=== PATIENT | male | born 1935 | race Caucasian/White ===

== ENCOUNTER → 2018-06-29 22:00 | Outpatient (REF) | payer MEDICARE, SELFPAY ==
[2018-06-29 23:15] LABS: Hematocrit 40.2 % (40-54); Hemoglobin 12.9 g/dl (13.0-16.5); Mean Corp Hgb Conc 32.1 g/gl (32-36); Mean Corpuscular Hgb 29.8 pg (27.0-32.0); Mean Corpuscular Volume 92.8 fL (80-94); Platelet Count 358 K/mm3 (150-450); RBC Distribution Width SD 47.4 fl (35.1-43.9); Red Blood Count 4.33 M/mm3 (4.6-6.2); Scan Indicated on CBC? Y/N NO; White Blood Count 24.7 K/mm3 (4.4-11.0)
[2018-06-29 23:33] LABS: Anion Gap 10 (5-15); BUN 13 mg/dL (7-18); BUN/Creat Ratio 10.2 RATIO (10-20); Calcium,Total 8.9 mg/dL (8.5-10.1); Chloride 104 mmol/L (98-107); Creatinine, Serum 1.27 mg/dL (0.70-1.30); EST Glomerular Filtration Rate 58 mL/min (>60); Est Glom Filt Rate - Afr Amer 70 mL/min (>60); Glucose 161 mg/dL (74-106); Potassium 3.8 mmol/L (3.5-5.1); Sodium Level 138 mmol/L (136-145)
[2018-06-29 23:45] LABS: Color, Urine Yellow (Yellow); Glucose, Dipstick Normal (Normal); Ketone-Dipstick 15 mg/dl (Negative); Leukocyte Esterase-Dipstick 500 /ul (Negative); Nitrite-Dipstick Negative (Negative); Occult Blood-Urine 50 /ul (Negative); Protein-Dipstick 30 mg/dl (Negative); Specific Gravity, Urine 1.015 (1.002-1.030); Urine Bilirubin Dipstick Negative (Negative); Urine Clarity Sl. Cloudy (Clear); Urine Urobilinogen Normal (Normal)
[2018-06-30 00:13] LABS: ALB/GLOB Ratio 0.9 RATIO (0.9-2.4); AST(SGOT) 12 U/L (15-37); Alanine Aminotransfer ALT/SGPT 21 U/L (16-61); Albumin, Serum 3.5 g/dL (3.2-5.0); Alkaline Phosphatase 81 U/L (45-117); Globulin 4.1 g/dL (2.2-4.2); Protein, Total 7.6 g/dL (6.4-8.2)
== END ==
LOC: OLS.ACW200 22:00
PROVIDERS: Visit Provider Family Medicine
DX: L03.115 Cellulitis of right lower limb (principal); M62.81 Muscle weakness (generalized); I10 Essential (primary) hypertension; J44.9 Chronic obstructive pulmonary disease, unspecified; E11.51 Type 2 diabetes mellitus with diabetic peripheral angiopathy without gangrene
CPT/HCPCS: 36415; 80053; 81002; 85027; 87086; 87088; 87186

== ENCOUNTER → 2018-11-01 05:00 | Outpatient (REF) | payer MEDICARE, SELFPAY ==
[2018-11-01 08:28] LABS: Hemoglobin A1c 6.2 % (4.2-6.3)
[2018-11-01 08:34] LABS: AST(SGOT) 9 U/L (15-37); Alanine Aminotransfer ALT/SGPT 12 U/L (16-61); Alkaline Phosphatase 77 U/L (45-117); Anion Gap 8 (5-15); BUN 20 mg/dL (7-18); BUN/Creat Ratio 16.1 RATIO (10-20); Bilirubin, Direct 0.09 mg/dL (0.00-0.30); Calcium,Total 8.5 mg/dL (8.5-10.1); Chloride 106 mmol/L (98-107); Cholesterol 87 mg/dL (200); Creatinine, Serum 1.24 mg/dL (0.70-1.30); EST Glomerular Filtration Rate 59 mL/min (>60); Est Glom Filt Rate - Afr Amer 72 mL/min (>60); Globulin 3.7 g/dL (2.2-4.2); Glucose 135 mg/dL (74-106); High Density Lipoprotein 30 mg/dL; Potassium 4.1 mmol/L (3.5-5.1); Protein, Total 6.7 g/dL (6.4-8.2); Sodium Level 141 mmol/L (136-145); Triglycerides 87 mg/dL; Very Low Density Lipoprotein 17 mg/dL (5-40)
--- OUTSIDE RECORDS SUMMARY | 2019-01-03 06:29 | XMS RPT_ITS ---
:1935 Author Organization OH[facility] Care Team Providers Name Role Phone PROVIDER, UNKNOWN Referring Unavailable Nicolasa Roth Primary Care Unavailable UNKNOWN, PROVIDER Attending Unavailable Reese Marie Attending Unavailable Reese Marie Attending Unavailable Reese Marie Attending Unavailable Reese Marie Attending Unavailable PROBLEMS PROBLEMS DATE TYPE CONDITION / CODE ATTENDING STATUS SOURCE 08/09/2018 Unknown L03.115 - Reees Marie Active [facility] Cellulitis of right Community lower limb / Hospital L03.115(ICD-10) Repository 08/09/2018 Unknown M62.81 - Muscle Reese Marie Active [facility] weakness Community (generalized) / Hospital M62.81(ICD-10) Repository 08/09/2018 Unknown I10 - Essential Reese Marie Active [facility] (primary) [facility] hypertension / Hospital I10(ICD-10) Repository 08/09/2018 Unknown J44.9 - Chronic Reese Marie Active [facility] obstructive [facility] pulmonary disease, Hospital unspecified / Repository J44.9(ICD-10) 08/09/2018 Unknown 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 / E11.51(ICD-10) 05/03/2018 Admitting Sepsis, unspecified Unknown Active [facility] Diagnosis organism / System A41.9(ICD-10) Repository 05/03/2018 Admitting Cellulitis of right Unknown Active [facility] Diagnosis lower limb / System L03.115(ICD-10) Repository 05/03/2018 Admitting Acute kidney Unknown Active [facility] Diagnosis failure, System unspecified / Repository N17.9(ICD-10) 05/03/2018 Admitting Acidosis / Unknown Active [facility] Diagnosis E87.2(ICD-10) System Repository 05/03/2018 Admitting Body mass index Unknown Active [facility] Diagnosis (BMI) 40.0-44.9, System adult / Repository Z68.41(ICD-10) 05/03/2018 Admitting Chronic obstructive Unknown Active [facility] Diagnosis pulmonary disease, System unspecified / Repository J44.9(ICD-10) 05/03/2018 Admitting Pressure ulcer of Unknown Active [facility] Diagnosis left buttock, System unspecified stage / Repository L89.329(ICD-10) 05/03/2018 Admitting Pressure ulcer of Unknown Active [facility] Diagnosis right buttock, System unspecified stage / Repository L89.319(ICD-10) 05/03/2018 Admitting Type 2 diabetes Unknown Active [facility] Diagnosis mellitus w diabetic System chronic kidney Repository disease / E11.22(ICD-10) 05/03/2018 Admitting Type 2 diabetes Unknown Active [facility] Diagnosis mellitus with System hyperglycemia / Repository E11.65(ICD-10) 05/03/2018 Admitting Type 2 diabetes w Unknown Active [facility] Diagnosis diabetic peripheral System angiopath w/o Repository gangrene / E11.51(ICD-10) 05/03/2018 Admitting Pressure ulcer of Unknown Active [facility] Diagnosis unsp part of back, System unspecified stage / Repository L89.109(ICD-10) 05/03/2018 Admitting Do not resuscitate Unknown Active [facility] Diagnosis / Z66(ICD-10) System Repository 05/03/2018 Admitting Pressure ulcer of Unknown Active [facility] Diagnosis right heel, System unstageable / Repository L89.610(ICD-10) 05/03/2018 Admitting Chronic kidney Unknown Active [facility] Diagnosis disease, stage 3 System (moderate) / Repository N18.3(ICD-10) 05/03/2018 Admitting Hypotension, Unknown Active [facility] Diagnosis unspecified / System I95.9(ICD-10) Repository 05/03/2018 Admitting Obstructive sleep Unknown Active [facility] Diagnosis apnea (adult) System (pediatric) / Repository G47.33(ICD-10) 05/03/2018 Admitting Hypertensive Unknown Active [facility] Diagnosis chronic kidney System disease w stg Repository 1-4/unsp chr kdny / I12.9(ICD-10) 05/03/2018 Admitting Benign prostatic Unknown Active [facility] Diagnosis hyperplasia without System lower urinry tract Repository symp / N40.0(ICD-10) 05/03/2018 Admitting Venous Unknown Active [facility] Diagnosis insufficiency System (chronic) Repository (peripheral) / I87.2(ICD-10) 05/03/2018 Admitting Obesity, Unknown Active [facility] Diagnosis unspecified / System E66.9(ICD-10) Repository 05/03/2018 Admitting Irritable bowel Unknown Active [facility] Diagnosis syndrome with System diarrhea / Repository K58.0(ICD-10) 05/03/2018 Admitting Encounter for Unknown Active [facility] Diagnosis palliative care / System Z51.5(ICD-10) Repository 05/03/2018 Admitting Personal history of Unknown Active [facility] Diagnosis colonic polyps / System Z86.010(ICD-10) Repository 05/03/2018 Admitting Bed confinement Unknown Active [facility] Diagnosis status / System Z74.01(ICD-10) Repository 05/03/2018 Admitting History of falling Unknown Active [facility] Diagnosis / Z91.81(ICD-10) System Repository 05/03/2018 Admitting Cataract extraction Unknown Active [facility] Diagnosis status, left eye / System Z98.42(ICD-10) Repository 05/03/2018 Admitting Cataract extraction Unknown Active [facility] Diagnosis status, right eye / System Z98.41(ICD-10) Repository 05/03/2018 Admitting buttermaker continuous churn (current) Unknown Active [facility] Diagnosis use of aspirin / System Z79.82(ICD-10) Repository 05/03/2018 Admitting buttermaker continuous churn (current) Unknown Active [facility] Diagnosis use of oral System hypoglycemic drugs Repository / Z79.84(ICD-10) 05/03/2018 Admitting Personal history of Unknown Active [facility] Diagnosis nicotine dependence System / Z87.891(ICD-10) Repository PROCEDURES PROCEDURES No Procedure Records FoundRESULTS RESULTS HEMOGLOBIN A1C Collected: 11/01/2018 Status: F Source: [place] 6:45 AM [facility] Order Comment: ROOM 307-1 TYPE CODE TESTS RESULT OUT OF RANGE REFERENCE UNITS LAB L501.9985 4.2-6.3 % Normal HGB A1C 6.2 Performed By: #### L501.9985 #### [facility] [address] [place], [id number] BASIC METABOLIC Collected: 11/01/2018 Status: F Source: [place] PROFILE (BMP) 6:45 AM [facility]POS[facility] Order Comment: ROOM 307-1 TYPE CODE TESTS RESULT OUT OF RANGE REFERENCE UNITS LAB L501.0100 74-106 mg/dL High GLU 135 Result Comment: Fasting Glucose result greater than or equal to 126 mg/dL suggests DIABETES MELLITUS per A.D.A. criteria. Please note revised GLUCOSE reference range effective 2017. LAB L501.1000 7-18 mg/dL High BUN 20 LAB L501.1100 0.70-1.30 mg/dL Normal CREAT,SERUM 1.24 Result Comment: The validity of the calculated GFR AND GFRAA in patients over 70 years has not been determined. Clinical correlation is essential. LAB L501.1110 >60 mL/min Low EST GFR 59 Result Comment: Non- GFR Calc LAB L501.1115 >60 mL/min Normal EST GFR - AA 72 Result Comment: GFR Calc LAB L501.1300 10-20 RATIO Normal BUN/CRE 16.1 LAB L501.2200 8.5-10.1 mg/dL CA Normal 8.5 LAB L501.5300 136-145 mmol/L NA Normal 141 LAB L501.5600 3.5-5.1 mmol/L K Normal 4.1 LAB L501.5900 98-107 mmol/L CL Normal 106 LAB L501.6100 21.0-32.0 mmol/L Normal CO2 27.0 LAB L501.6200 5-15 Normal GAP 8 Performed By: #### L500.2500, L500.3400, L500.4100 #### [facility] [address] [place], [address] LIVER PROFILE Collected: 11/01/2018 Status: F Source: [place] 6:45 AM [facility] Order Comment: ROOM 307-1 TYPE CODE TESTS RESULT OUT OF RANGE REFERENCE UNITS LAB L501.1500 6.4-8.2 g/dL Normal T PROT 6.7 LAB L501.1800 3.2-5.0 g/dL Low ALB 3.0 LAB L501.1950 2.2-4.2 g/dL Normal GLOB 3.7 LAB L501.4100 15-37 U/L Low AST 9 LAB L501.4305 45-117 U/L Normal ALK P 77 LAB L501.4405 16-61 U/L Low ALT 12 LAB L501.4600 0.20-1.00 mg/dL Normal T BILI 0.30 LAB L501.4700 0.00-0.30 mg/dL Normal D BILI 0.09 Performed By: #### L500.2500, L500.3400, L500.4100 #### [facility] [address] [facility] [place], [place], [id number] LIPID PROFILE Collected: 11/01/2018 Status: F Source: [place] 6:45 AM [facility] Order Comment: ROOM 307-1 TYPE CODE TESTS RESULT OUT OF RANGE REFERENCE UNITS LAB L501.4900 200 mg/dL Normal CHOL 87 Result Comment: <200 mg/dL Desirable 200-240 mg/dL Borderline >240 mg/dL High Risk LAB L501.5000 mg/dL Normal TRIG 87 Result Comment: The drugs N-Acetylcysteine and Metamizole may falsely depress this assay. Serum Triglycerides Reference Interval Normal <150 mg/dL Borderline high 150 - 199 mg/dL High 200 - 499 mg/dL Very High > or = 500 mg/dL LAB L501.6400 mg/dL Low HDL 30 Result Comment: The drugs N-Acetylcysteine and Metamizole may falsely depress this assay. Reference Range HDL <40 mg/dL Low HDL Cholesterol HDL >or= 60 mg/dL High HDL Cholesterol LAB L501.6500 0-130 mg/dL Normal LDL 40 LAB L501.6600 5-40 mg/dL Normal VLDL 17 Performed By: #### L500.2500, L500.3400, L500.4100 #### [facility] [address] [facility] [place], [place], [id number] CBC-COMPLETE BLOOD CNT Collected: 07/04/2018 Status: F Source: [place] NO DIFF 7:15 AM [facility] TYPE CODE TESTS RESULT OUT OF RANGE REFERENCE UNITS LAB L100.1000 4.4-11.0 K/mm3 Normal WBC 10.1 LAB L100.1200 4.6-6.2 M/mm3 Low RBC 4.02 LAB L100.1300 13.0-16.5 g/dl Low HGB 11.7 LAB L100.1400 40-54 % Low HCT 37.0 LAB L100.1500 80-94 fL Normal MCV 92.0 LAB L100.1600 27.0-32.0 pg Normal MCH 29.1 LAB L100.1700 32-36 g/gl Low MCHC 31.6 LAB L100.1810 11.6-14.6 % Normal RDW CV 13.9 LAB L100.1820 35.1-43.9 fl High RDW SD 46.8 LAB L100.1900 150-450 K/mm3 Normal PLT 403 LAB L100.2000 6.2-12.0 fl Normal MPV 9.2 Performed By: #### L100.0500 #### [facility] [address] [place], [address] BASIC METABOLIC Collected: 07/04/2018 Status: F Source: [place] PROFILE (BMP) 7:15 AM [facility] TYPE CODE TESTS RESULT OUT OF RANGE REFERENCE UNITS LAB L501.0100 74-106 mg/dL High GLU 112 Result Comment: Fasting Glucose result from 100 to 125 mg/dL suggests IMPAIRED HOMEOSTASIS per A.D.A. criteria. Please note revised GLUCOSE reference range effective 2017. LAB L501.1000 7-18 mg/dL Normal BUN 12 LAB L501.1100 0.70-1.30 mg/dL Normal CREAT,SERUM 1.20 Result Comment: The validity of the calculated GFR AND GFRAA in patients over 70 years has not been determined. Clinical correlation is essential. LAB L501.1110 >60 mL/min Normal EST GFR 62 Result Comment: Non- GFR Calc LAB L501.1115 >60 mL/min Normal EST GFR - AA 75 Result Comment: GFR Calc LAB L501.1300 10-20 RATIO Normal BUN/CRE 10.0 LAB L501.2200 8.5-10.1 mg/dL CA Normal 8.7 LAB L501.5300 136-145 mmol/L NA Normal 140 LAB L501.5600 3.5-5.1 mmol/L K Normal 3.5 LAB L501.5900 98-107 mmol/L CL Normal 106 LAB L501.6100 21.0-32.0 mmol/L Normal CO2 27.0 LAB L501.6200 5-15 Normal GAP 7 Performed By: #### L500.2500 #### [facility] [address] [place], [address] BASIC METABOLIC Collected: 06/29/2018 Status: F Source: [place] PROFILE ([facility]) 11:35 PM [facility] Order Comment: RM:100/2 TYPE CODE TESTS RESULT OUT OF RANGE REFERENCE UNITS LAB L501.0100 74-106 mg/dL High GLU 161 Result Comment: Fasting Glucose result greater than or equal to 126 mg/dL suggests DIABETES MELLITUS per A.D.A. criteria. Please note revised GLUCOSE reference range effective 2017. LAB L501.1000 7-18 mg/dL Normal BUN 13 LAB L501.1100 0.70-1.30 mg/dL Normal CREAT,SERUM 1.27 Result Comment: The validity of the calculated GFR AND GFRAA in patients over 70 years has not been determined. Clinical correlation is essential. LAB L501.1110 >60 mL/min Low EST GFR 58 Result Comment: Non- GFR Calc LAB L501.1115 >60 mL/min Normal EST GFR - AA 70 Result Comment: GFR Calc LAB L501.1300 10-20 RATIO Normal BUN/CRE 10.2 LAB L501.2200 8.5-10.1 mg/dL CA Normal 8.9 LAB L501.5300 136-145 mmol/L NA Normal 138 LAB L501.5600 3.5-5.1 mmol/L K Normal 3.8 LAB L501.5900 98-107 mmol/L CL Normal 104 LAB L501.6100 21.0-32.0 mmol/L Normal CO2 24.0 LAB L501.6200 5-15 Normal GAP 10 Performed By: #### L500.2500, L500.4050 #### [facility] [address] [place], [address] COMPREHENSIVE METABOLIC Collected: 06/29/2018 Status: F Source: [place] PROFIL 11:35 PM [facility] Order Comment: RM:100/2 TYPE CODE TESTS RESULT OUT OF RANGE REFERENCE UNITS LAB L501.0100 74-106 mg/dL High GLU 161 Result Comment: Fasting Glucose result greater than or equal to 126 mg/dL suggests DIABETES MELLITUS per A.D.A. criteria. Please note revised GLUCOSE reference range effective 2017. LAB L501.1000 7-18 mg/dL Normal BUN 13 LAB L501.1100 0.70-1.30 mg/dL Normal CREAT,SERUM 1.27 Result Comment: The validity of the calculated GFR AND GFRAA in patients over 70 years has not been determined. Clinical correlation is essential. LAB L501.1110 >60 mL/min Low EST GFR 58 Result Comment: Non- GFR Calc LAB L501.1115 >60 mL/min Normal EST GFR - AA 70 Result Comment: GFR Calc LAB L501.1300 10-20 RATIO Normal BUN/CRE 10.2 LAB L501.2200 8.5-10.1 mg/dL CA Normal 8.9 LAB L501.5300 136-145 mmol/L NA Normal 138 LAB L501.5600 3.5-5.1 mmol/L K Normal 3.8 LAB L501.5900 98-107 mmol/L CL Normal 104 LAB L501.6100 21.0-32.0 mmol/L Normal CO2 24.0 LAB L501.6200 5-15 Normal GAP 10 LAB L501.1500 6.4-8.2 g/dL T Normal PROT 7.6 LAB L501.1800 3.2-5.0 g/dL Normal ALB 3.5 LAB L501.1950 2.2-4.2 g/dL Normal GLOB 4.1 LAB L501.2000 0.9-2.4 RATIO Normal A/G 0.9 LAB L501.4100 15-37 U/L Low AST 12 LAB L501.4305 45-117 U/L Normal ALK P 81 LAB L501.4405 16-61 U/L Normal ALT 21 LAB L501.4600 0.20-1.00 mg/dL T Normal BILI 0.50 Performed By: #### L500.2500, L500.4050 #### [facility] [address] [place], [place], [id number] CBC-COMPLETE BLOOD CNT Collected: 06/29/2018 Status: F Source: [place] NO DIFF 10:35 PM [facility] Order Comment: RM:100/2 TYPE CODE TESTS RESULT OUT OF RANGE REFERENCE UNITS LAB L100.1000 4.4-11.0 K/mm3 High WBC 24.7 LAB L100.1200 4.6-6.2 M/mm3 Low RBC 4.33 LAB L100.1300 13.0-16.5 g/dl Low HGB 12.9 LAB L100.1400 40-54 % Normal HCT 40.2 LAB L100.1500 80-94 fL Normal MCV 92.8 LAB L100.1600 27.0-32.0 pg Normal MCH 29.8 LAB L100.1700 32-36 g/gl Normal MCHC 32.1 LAB L100.1810 11.6-14.6 % Normal RDW CV 14.0 LAB L100.1820 35.1-43.9 fl High RDW SD 47.4 LAB L100.1900 150-450 K/mm3 Normal PLT 358 LAB L100.2000 6.2-12.0 fl Normal MPV 9.0 Performed By: #### L100.0500 #### [facility] [address] [place], [address] URINALYSIS, ROUTINE Collected: 06/29/2018 Status: F Source: [place] (DIPSTICK) 10:00 PM [facility] Order Comment: How was Urine Obtained? CLEAN CATCH TYPE CODE TESTS RESULT OUT OF RANGE REFERENCE UNITS LAB L400.3000 Yellow COLOR Normal Yellow LAB L400.3050 Clear Normal CLARITY Sl. Cloudy LAB L400.3200 Normal mg/dl Normal GLUCOSE, UR Normal LAB L400.3300 Negative mg/dL Normal BILIRUBIN URINE Negative LAB L400.3400 Negative mg/dl High 15 KETONE UR LAB L400.3465 1.002-1.030 Normal SP.GR. DIPSTX 1.015 LAB L400.3550 5.0 - 8.0 pH UR Normal 5.0 LAB L400.3600 Negative mg/dl High PROT 30 DIPSTX LAB L400.3700 Normal mg/dl Normal UROBILI Normal LAB L400.3750 Negative Normal NITRITE UR Negative LAB L400.3780 Negative /ul High 50 OCCULT BLOOD-UR LAB L400.3800 Negative /ul High LEUK ESTERASE 500 Performed By: #### L400.2011 #### [facility] [address] [facility] [place], [place], [address] Observed: 06/29/2018 Status: F Source: [place] CULTURE, URINE 10:00 PM [facility] REPOS[facility]ORY Urine Culture ORGANISM 1: Presumptive E. coli [place] Count 80,000-100,000 Presumptive E. coli: REACTION Amoxacillin/Clavulanic Acid $ 4 S Ampicillin $ 4 S Ampicillin/Sulbactam $ 4 S Cefazolin $ <=4 S Cefepime $ <=1 S Ceftriaxone $ <=1 S Ciprofloxacin $ <=0.25 S ESBL - Ertapenim $$$ <=0.5 S Gentamicin $ <=1 S Imipenem *NF <=0.25 S Levofloxacin $ 1 S Nitrofurantoin $ <=16 S Piperacillin/Tazobactam $$ <=4 S Tobramycin $ <=1 S Trimethoprim/Sulfametho $ <=20 S (NF) indicates non-formulary drug at [facility]. Approval by Infectious Disease Specialist required before non-formulary drugs may be ordered and/or dispensed. Performed By: #### M100.0650 #### [facility] [address] [facility] [place], [address] CBC-COMPLETE BLOOD CNT Collected: 05/23/2018 Status: F Source: [place] NO DIFF 5:55 AM [facility] Order Comment: 100-2 TYPE CODE TESTS RESULT OUT OF RANGE REFERENCE UNITS LAB L100.1000 4.4-11.0 K/mm3 Normal WBC 8.3 LAB L100.1200 4.6-6.2 M/mm3 Low RBC 4.02 LAB L100.1300 13.0-16.5 g/dl Low HGB 11.9 LAB L100.1400 40-54 % Low HCT 38.8 LAB L100.1500 80-94 fL High MCV 96.5 LAB L100.1600 27.0-32.0 pg Normal MCH 29.6 LAB L100.1700 32-36 g/gl Low MCHC 30.7 LAB L100.1810 11.6-14.6 % High RDW CV 15.1 LAB L100.1820 35.1-43.9 fl High RDW SD 52.9 LAB L100.1900 150-450 K/mm3 Normal PLT 421 LAB L100.2000 6.2-12.0 fl Normal MPV 9.4 Performed By: #### L100.0500 #### [facility] [address] [place], [address] COMPREHENSIVE METABOLIC Collected: 05/23/2018 Status: F Source: [place] [facility] 5:55 AM [facility] Order Comment: 100-2 TYPE CODE TESTS RESULT OUT OF RANGE REFERENCE UNITS LAB L501.0100 74-106 mg/dL High GLU 107 Result Comment: Fasting Glucose result from 100 to 125 mg/dL suggests IMPAIRED HOMEOSTASIS per A.D.A. criteria. Please note revised GLUCOSE reference range effective 2017. LAB L501.1000 7-18 mg/dL Normal BUN 11 LAB L501.1100 0.70-1.30 mg/dL Normal CREAT,SERUM 1.25 Result Comment: The validity of the calculated GFR AND GFRAA in patients over 70 years has not been determined. Clinical correlation is essential. LAB L501.1110 >60 mL/min Low EST GFR 59 Result Comment: Non- GFR Calc LAB L501.1115 >60 mL/min Normal EST GFR - AA 71 Result Comment: GFR Calc LAB L501.1300 10-20 RATIO Low BUN/CRE 8.8 LAB L501.1500 6.4-8.2 g/dL Normal T PROT 6.4 LAB L501.1800 3.2-5.0 g/dL Low ALB 2.8 LAB L501.1950 2.2-4.2 g/dL Normal GLOB 3.6 LAB L501.2000 0.9-2.4 RATIO Low A/G 0.8 LAB L501.2200 8.5-10.1 mg/dL Normal CA 8.5 LAB L501.4100 15-37 U/L Normal AST 18 LAB L501.4305 45-117 U/L Normal ALK P 75 LAB L501.4405 16-61 U/L Normal ALT 21 LAB L501.4600 0.20-1.00 mg/dL Normal T BILI 0.30 LAB L501.5300 136-145 mmol/L Normal NA 143 LAB L501.5600 3.5-5.1 mmol/L Normal K 3.7 LAB L501.5900 98-107 mmol/L Normal CL 106 LAB L501.6100 21.0-32.0 mmol/L Normal CO2 32.0 LAB L501.6200 5-15 Normal GAP 5 Performed By: #### L500.4050, L500.4100, L501.5200, L501.9520 #### [facility] [address] [place], [place], [address] LIPID PROFILE Collected: 05/23/2018 Status: F Source: [place] 5:55 AM [facility] Order Comment: 100-2 TYPE CODE TESTS RESULT OUT OF RANGE REFERENCE UNITS LAB L501.4900 200 mg/dL Normal CHOL 105 Result Comment: <200 mg/dL Desirable 200-240 mg/dL Borderline >240 mg/dL High Risk LAB L501.5000 mg/dL Normal TRIG 150 Result Comment: The drugs N-Acetylcysteine and Metamizole may falsely depress this assay. Serum Triglycerides Reference Interval Normal <150 mg/dL Borderline high 150 - 199 mg/dL High 200 - 499 mg/dL Very High > or = 500 mg/dL LAB L501.6400 mg/dL Low HDL 33 Result Comment: The drugs N-Acetylcysteine and Metamizole may falsely depress this assay. Reference Range HDL <40 mg/dL Low HDL Cholesterol HDL >or= 60 mg/dL High HDL Cholesterol LAB L501.6500 0-130 mg/dL Normal LDL 42 LAB L501.6600 5-40 mg/dL Normal VLDL 30 Performed By: #### L500.4050, L500.4100, L501.5200, L501.9520 #### [facility] [address] [place], [place], [address] MAGNESIUM Collected: 05/23/2018 Status: F Source: [place] 5:55 AM [facility] Order Comment: 100-2 TYPE CODE TESTS RESULT OUT OF RANGE REFERENCE UNITS LAB L501.5200 1.6-2.6 mg/dL Normal MG 1.7 Performed By: #### L500.4050, L500.4100, L501.5200, L501.9520 #### [facility] [address] [place], [address] THYROID STIM HORMONE Collected: 05/23/2018 Status: F Source: [place]NMAR[place] (TSH) 5:55 AM [facility] Order Comment: 100-2 TYPE CODE TESTS RESULT OUT OF RANGE REFERENCE UNITS LAB L501.9520 0.358-3.74 uIU/mL Normal TSH 1.47 Performed By: #### L500.4050, L500.4100, L501.5200, L501.9520 #### [facility] [address] [place], [address] VITAMIN D,25 HYDROXY Collected: 05/23/2018 Status: F Source: [place] 5:55 AM [facility] Order Comment: 100-2 TYPE CODE TESTS RESULT OUT OF RANGE REFERENCE UNITS LAB L506.1000 29.95-100.01 ng/mL Normal Vitamin D 53.6 25-OH Result Comment: Vitamin D 25(OH) Status Range Deficiency <20 ng/mL (50nmol/L) Insuffciency 20 - 30 ng/mL (50 - 75 nmol/L) Sufficiency 30 - 100 ng/mL (75 - 250 nmol/L) Toxicity >100 ng/mL (>250 nmol/L) Performed By: #### L506.1000 #### [facility] [address] [place], [address] HEMOGLOBIN A1C Collected: 05/23/2018 Status: F Source: [place] 5:55 AM [facility] Order Comment: 100-2 TYPE CODE TESTS RESULT OUT OF RANGE REFERENCE UNITS LAB L501.9985 4.2-6.3 % High HGB A1C 6.5 Performed By: #### L501.9985 #### [facility] [address] [place], [address] HEMOGRAM Collected: 05/08/2018 Status: F Source: [facility] [employer] 6:22 AM SYSTEM REPOSITORY TYPE CODE TESTS RESULT OUT OF RANGE REFERENCE UNITS LAB IWBC 3.6-10.7 10*3/uL WBC Normal 9.3 LAB RBC 4.40-5.90 10*6/uL Low RBC 4.04 LAB HGB 13.0-18.0 g/dL Low Hemoglobin 12.4 LAB HCT 40.0-52.0 % Low Hematocrit 37.2 LAB MCV 80.0-98.0 fL MCV Normal 91.9 LAB MCH 26.0-34.0 pg MCH Normal 30.6 LAB MCHC 32.0-36.0 % MCHC Normal 33.3 LAB RDW 11.5-14.5 % RDW Normal 14.0 LAB PLT 140-440 10*3/uL Platelet Normal 329 LAB MPV 7.4-10.4 fL Low MPV 7.2 Performed By: #### HEMOG CMP3 #### [facility] [address] [place] [address] COMP METABOLIC PANEL Collected: 05/08/2018 Status: F Source: [employer] 6:22 AM SYSTEM REPOSITORY TYPE CODE TESTS RESULT OUT OF RANGE REFERENCE UNITS LAB NA3 137-145 mmol/L Sodium Normal 140 LAB K3 3.5-5.1 mmol/L Normal Potassium 3.9 LAB CL3 98-107 mmol/L High Chloride 111 LAB CO23 22-30 mmol/L Carbon Normal Dioxide 25 LAB ANIN3 NA Anion Gap 4 LAB GLUC3 70-100 mg/dL High Glucose 118 LAB BUN3 7-20 mg/dL Urea Normal Nitrogen 15 LAB CRET3 0.52-1.25 mg/dL High Creatinine 1.33 LAB GF3BR >60 mL/min eGFR > 60.0 LAB GF3WR >60 mL/min eGFR OTHER 51.5 Result Comment: Source- MDRD equation with creatinine calibration to IDMS(NKDEP) eGFR not recommended for drug dose adjustment LAB CA3 8.4-10.4 mg/dL Calcium Normal 8.8 LAB ALB3 3.5-5.0 g/dL Low Albumin, Serum 3.0 LAB TP3 6.3-8.2 g/dL Low Total Protein 5.9 LAB BILT3 0.2-1.3 mg/dL Normal Bilirubin,Total 0.5 LAB ALKP3 38-126 U/L Alkaline Normal Phosphatase 70 LAB ALT3 13-69 U/L ALT (SGPT) Normal 27 LAB AST3 15-46 U/L Low AST (SGOT) 10 Performed By: #### HEMOG, CMP3 #### [facility] [address] [place] [address] PROCALCITONIN Collected: 05/08/2018 Status: F Source: [employer] 6:22 AM SYSTEM REPOSITORY TYPE CODE TESTS RESULT OUT OF REFERENCE UNITS RANGE LAB PRO <0.10 ng/mL Procalcitonin Normal < 0.10 LAB INT3 NA Interpretation See Below Result Comment: PCT <0.50 = Low risk of severe sepsis and/or septic shock. PCT >2.00 = High risk of severe sepsis and/or septic shock. Performed By: #### PCAL #### [facility] [address] [place] [address] GLUCOSE,BEDSIDE Collected: 05/07/2018 Status: F Source: [employer] 10:12 PM SYSTEM REPOSITORY TYPE CODE TESTS RESULT OUT OF RANGE REFERENCE UNITS LAB BGLU 70-100 mg/dL High 146 Glucose,Beds justin Result Comment: Test performed by glucose meter. Results may be 10%-15% lower than serum/plasma values. (CLIA ID [id number]) Performed By: #### BGLU #### [facility] [address] [place] [address] GLUCOSE,BEDSIDE Collected: 05/07/2018 Status: F Source: UXCam 5:07 PM SYSTEM REPOSITORY TYPE CODE TESTS RESULT OUT OF RANGE REFERENCE UNITS LAB BGLU 70-100 mg/dL High 139 Glucose,Beds justin Result Comment: Test performed by glucose meter. Results may be 10%-15% lower than serum/plasma values. (CLIA ID [id number]) Performed By: #### BGLU #### [facility] [address] [place] [address] GLUCOSE,BEDSIDE Collected: 05/07/2018 Status: F Source: UXCam 12:50 PM SYSTEM REPOSITORY TYPE CODE TESTS RESULT OUT OF RANGE REFERENCE UNITS LAB BGLU 70-100 mg/dL High 102 Glucose,Beds justin Result Comment: Test performed by glucose meter. Results may be 10%-15% lower than serum/plasma values. (CLIA ID [id number]) Performed By: #### BGLU #### [facility] [address] [place] [address] HEMOGRAM Collected: 05/07/2018 Status: F Source: UXCam 3:26 AM SYSTEM REPOSITORY TYPE CODE TESTS RESULT OUT OF RANGE REFERENCE UNITS LAB IWBC 3.6-10.7 10*3/uL High WBC 14.0 LAB RBC 4.40-5.90 10*6/uL Low RBC 4.15 LAB HGB 13.0-18.0 g/dL Low Hemoglobin 12.4 LAB HCT 40.0-52.0 % Low Hematocrit 38.2 LAB MCV 80.0-98.0 fL MCV Normal 92.1 LAB MCH 26.0-34.0 pg MCH Normal 30.0 LAB MCHC 32.0-36.0 % MCHC Normal 32.5 LAB RDW 11.5-14.5 % RDW Normal 14.4 LAB PLT 140-440 10*3/uL Platelet Normal 334 LAB MPV 7.4-10.4 fL Low MPV 7.0 Performed By: #### DEVIN ORDONEZ3 #### [facility] [address] [place] [address] BASIC METABOLIC PANEL Collected: 05/07/2018 Status: F Source: UXCam 3:26 AM SYSTEM REPOSITORY TYPE CODE TESTS RESULT OUT OF RANGE REFERENCE UNITS LAB NA3 137-145 mmol/L Sodium Normal 142 LAB K3 3.5-5.1 mmol/L Normal Potassium 4.4 LAB CL3 98-107 mmol/L High Chloride 111 LAB CO23 22-30 mmol/L Carbon Normal Dioxide 25 LAB ANIN3 NA Anion Gap 5 LAB GLUC3 70-100 mg/dL High Glucose 129 LAB BUN3 7-20 mg/dL High Urea Nitrogen 24 LAB CRET3 0.52-1.25 mg/dL High Creatinine 1.67 LAB GF3BR >60 mL/min eGFR 48.0 LAB GF3WR >60 mL/min eGFR OTHER 39.6 Result Comment: Source- MDRD equation with creatinine calibration to IDMS(NKDEP) eGFR not recommended for drug dose adjustment LAB CA3 8.4-10.4 mg/dL Normal Calcium 8.7 Performed By: #### HEMHIEN BMP3 #### [facility] [address] [place] [address] GLUCOSE,BEDSIDE Collected: 05/06/2018 Status: F Source: UXCam 10:01 PM SYSTEM REPOSITORY TYPE CODE TESTS RESULT OUT OF RANGE REFERENCE UNITS LAB BGLU 70-100 mg/dL High 128 Glucose,Beds justin Result Comment: Test performed by glucose meter. Results may be 10%-15% lower than serum/plasma values. (CLIA ID [id number]) Performed By: #### BGLU #### [facility] [address] [place] [address] GLUCOSE,BEDSIDE Collected: 05/06/2018 Status: F Source: UXCam 5:00 PM SYSTEM REPOSITORY TYPE CODE TESTS RESULT OUT OF RANGE REFERENCE UNITS LAB BGLU 70-100 mg/dL High 125 Glucose,Beds justin Result Comment: Test performed by glucose meter. Results may be 10%-15% lower than serum/plasma values. (CLIA ID [id number]) Performed By: #### BGLU #### [facility] [address] [place] [address] GLUCOSE,BEDSIDE Collected: 05/06/2018 Status: F Source: UXCam 12:02 PM SYSTEM REPOSITORY TYPE CODE TESTS RESULT OUT OF RANGE REFERENCE UNITS LAB BGLU 70-100 mg/dL High 121 Glucose,Beds justin Result Comment: Test performed by glucose meter. Results may be 10%-15% lower than serum/plasma values. (CLIA ID [id number]) Performed By: #### BGLU #### [facility] [address] [place] [address] HEMOGRAM W/ AUTODIFF Collected: 05/06/2018 Status: F Source: UXCam 4:39 AM SYSTEM REPOSITORY TYPE CODE TESTS RESULT OUT OF REFERENCE UNITS RANGE LAB IWBC 3.6-10.7 10*3/uL WBC Normal 8.4 LAB RBC 4.40-5.90 10*6/uL Low RBC 3.72 LAB HGB 13.0-18.0 g/dL Low Hemoglobin 11.4 LAB HCT 40.0-52.0 % Low Hematocrit 34.1 LAB MCV 80.0-98.0 fL MCV Normal 91.6 LAB MCH 26.0-34.0 pg MCH Normal 30.7 LAB MCHC 32.0-36.0 % MCHC Normal 33.5 LAB RDW 11.5-14.5 % RDW Normal 14.0 LAB PLT 140-440 10*3/uL Platelet Normal 310 LAB MPV 7.4-10.4 fL Low MPV 7.1 LAB GRAN% 40.0-80.0 % Granulocytes Normal 65.0 LAB LYMP% 20.0-40.0 % Low Lymphocytes 18.0 LAB MONO% 2.0-10.0 % Monocytes Normal 7.8 LAB EOS% 1.0-6.0 % Eosinophils High 8.4 LAB BAS% 0.0-2.0 % Basophils Normal 0.8 LAB ANC 1.8-7.0 10*3/uL Abs Normal Neutrophile Cnt 5.4 LAB ALC 1.0-4.3 10*3/uL Abs Lymph Cnt Normal 1.5 LAB AMC 0.0-0.8 10*3/uL Abs Monocyte Normal Cnt 0.6 LAB AEC 0.0-0.5 10*3/uL Abs Eosin Cnt High 0.7 LAB ABC 0.0-0.2 10*3/uL Abs Baso Cnt Normal 0.1 Performed By: #### HEMDF, CMP3M #### [facility] [address] [place] [address] COMP PANEL WITH MG Collected: 05/06/2018 Status: F Source: UXCam REFLEX 4:39 AM SYSTEM REPOSITORY TYPE CODE TESTS RESULT OUT OF RANGE REFERENCE UNITS LAB NA3 137-145 mmol/L Sodium Normal 139 LAB K3 3.5-5.1 mmol/L Normal Potassium 4.1 LAB CL3 98-107 mmol/L Chloride Normal 106 LAB CO23 22-30 mmol/L Carbon Normal Dioxide 27 LAB ANIN3 NA Anion Gap 5 LAB GLUC3 70-100 mg/dL High Glucose 115 LAB BUN3 7-20 mg/dL High Urea Nitrogen 35 LAB CRET3 0.52-1.25 mg/dL High Creatinine 2.20 LAB GF3BR >60 mL/min eGFR 34.9 LAB GF3WR >60 mL/min eGFR OTHER 28.8 Result Comment: Source- MDRD equation with creatinine calibration to IDNM(NKDEP) eGFR not recommended for drug dose adjustment LAB CA3 8.4-10.4 mg/dL Calcium Normal 8.5 LAB ALB3 3.5-5.0 g/dL Low Albumin, Serum 2.9 LAB TP3 6.3-8.2 g/dL Low Total Protein 5.7 LAB BILT3 0.2-1.3 mg/dL Normal Bilirubin,Total 0.5 LAB ALKP3 38-126 U/L Alkaline Normal Phosphatase 61 LAB ALT3 13-69 U/L ALT (SGPT) Normal 24 LAB AST3 15-46 U/L AST (SGOT) Normal 16 Performed By: #### HEMDF, CMP3M #### [facility] [address] [place] [address] PROCALCITONIN Collected: 05/06/2018 Status: F Source: UXCam 4:39 AM SYSTEM REPOSITORY TYPE CODE TESTS RESULT OUT OF REFERENCE UNITS RANGE LAB PRO <0.10 ng/mL Procalcitonin Normal < 0.10 LAB INT3 NA Interpretation See Below Result Comment: PCT <0.50 = Low risk of severe sepsis and/or septic shock. PCT >2.00 = High risk of severe sepsis and/or septic shock. Performed By: #### PCAL #### [facility] [address] [place] [address] VANCOMYCIN TROUGH Collected: 05/05/2018 Status: F Source: UXCam 9:11 PM SYSTEM REPOSITORY TYPE CODE TESTS RESULT OUT OF REFERENCE UNITS RANGE LAB VNCT 15.0-20.0 ug/mL Low Vancomycin 13.0 Trough Result Comment: . Performed By: #### VANCT #### [facility] [address] [place] [address] GLUCOSE,BEDSIDE Collected: 05/05/2018 Status: F Source: UXCam 7:57 PM SYSTEM REPOSITORY TYPE CODE TESTS RESULT OUT OF RANGE REFERENCE UNITS LAB BGLU 70-100 mg/dL High 161 Glucose,Beds justin Result Comment: Test performed by glucose meter. Results may be 10%-15% lower than serum/plasma values. (CLIA ID [id number]) Performed By: #### BGLU #### [facility] [address] [place] [address] GLUCOSE,BEDSIDE Collected: 05/05/2018 Status: F Source: UXCam 5:17 PM SYSTEM REPOSITORY TYPE CODE TESTS RESULT OUT OF RANGE REFERENCE UNITS LAB BGLU 70-100 mg/dL High 117 Glucose,Beds justin Result Comment: Test performed by glucose meter. Results may be 10%-15% lower than serum/plasma values. (CLIA ID [id number]) Performed By: #### BGLU #### [facility] [address] [place] [address] GLUCOSE,BEDSIDE Collected: 05/05/2018 Status: F Source: UXCam 12:02 PM SYSTEM REPOSITORY TYPE CODE TESTS RESULT OUT OF RANGE REFERENCE UNITS LAB BGLU 70-100 mg/dL High 115 Glucose,Beds justin Result Comment: Test performed by glucose meter. Results may be 10%-15% lower than serum/plasma values. (CLIA ID [id number]) Performed By: #### BGLU #### [facility] [address] [place] [address] GLUCOSE,BEDSIDE Collected: 05/05/2018 Status: F Source: UXCam 8:23 AM SYSTEM REPOSITORY TYPE CODE TESTS RESULT OUT OF RANGE REFERENCE UNITS LAB BGLU 70-100 mg/dL High 105 Glucose,Beds justin Result Comment: Test performed by glucose meter. Results may be 10%-15% lower than serum/plasma values. (CLIA ID [id number]) Performed By: #### BGLU #### [facility] [address] [place] [address] CALCIUM,IONIZED Collected: 05/05/2018 Status: F Source: UXCam 3:52 AM SYSTEM REPOSITORY TYPE CODE TESTS RESULT OUT OF RANGE REFERENCE UNITS LAB ICAL 4.30-5.20 mg/dL Normal Ionized 4.30 Ca,Measured LAB PHICA 7.31-7.46 NA Normal pH, Ionized 7.42 Calcium Performed By: #### ICA, HEMDF, MG3, CMP3M #### [facility] [address] [place] [address] HEMOGRAM W/ AUTODIFF Collected: 05/05/2018 Status: F Source: UXCam 3:52 AM SYSTEM REPOSITORY TYPE CODE TESTS RESULT OUT OF REFERENCE UNITS RANGE LAB IWBC 3.6-10.7 10*3/uL WBC Normal 8.7 LAB RBC 4.40-5.90 10*6/uL Low RBC 3.74 LAB HGB 13.0-18.0 g/dL Low Hemoglobin 11.6 LAB HCT 40.0-52.0 % Low Hematocrit 34.3 LAB MCV 80.0-98.0 fL MCV Normal 91.7 LAB MCH 26.0-34.0 pg MCH Normal 31.0 LAB MCHC 32.0-36.0 % MCHC Normal 33.8 LAB RDW 11.5-14.5 % RDW Normal 14.1 LAB PLT 140-440 10*3/uL Platelet Normal 288 LAB MPV 7.4-10.4 fL MPV Normal 7.5 LAB GRAN% 40.0-80.0 % Granulocytes Normal 65.4 LAB LYMP% 20.0-40.0 % Low Lymphocytes 18.2 LAB MONO% 2.0-10.0 % Monocytes Normal 8.1 LAB EOS% 1.0-6.0 % Eosinophils High 7.2 LAB BAS% 0.0-2.0 % Basophils Normal 1.1 LAB ANC 1.8-7.0 10*3/uL Abs Normal Neutrophile Cnt 5.7 LAB ALC 1.0-4.3 10*3/uL Abs Lymph Cnt Normal 1.6 LAB AMC 0.0-0.8 10*3/uL Abs Monocyte Normal Cnt 0.7 LAB AEC 0.0-0.5 10*3/uL Abs Eosin Cnt High 0.6 LAB ABC 0.0-0.2 10*3/uL Abs Baso Cnt Normal 0.1 Performed By: #### ICA, HEMDF, MG3, CMP3M #### [facility] [address] [place] [address] MAGNESIUM Collected: 05/05/2018 Status: F Source: UXCam 3:52 AM SYSTEM REPOSITORY TYPE CODE TESTS RESULT OUT OF RANGE REFERENCE UNITS LAB MG3 1.6-2.3 mg/dL Normal Magnesium 1.7 Performed By: #### ICA, HEMDF, MG3, CMP3M #### [facility] [address] [place] [address] COMP PANEL WITH MG Collected: 05/05/2018 Status: F Source: UXCam REFLEX 3:52 AM SYSTEM REPOSITORY TYPE CODE TESTS RESULT OUT OF RANGE REFERENCE UNITS LAB NA3 137-145 mmol/L Low Sodium 134 LAB K3 3.5-5.1 mmol/L Normal Potassium 4.0 LAB CL3 98-107 mmol/L Chloride Normal 103 LAB CO23 22-30 mmol/L Carbon Normal Dioxide 25 LAB ANIN3 NA Anion Gap 5 LAB GLUC3 70-100 mg/dL High Glucose 116 LAB BUN3 7-20 mg/dL High Urea Nitrogen 45 LAB CRET3 0.52-1.25 mg/dL High Creatinine 3.01 LAB GF3BR >60 mL/min eGFR 24.3 LAB GF3WR >60 mL/min eGFR OTHER 20.1 Result Comment: Source- MDRD equation with creatinine calibration to IDMS(NKDEP) eGFR not recommended for drug dose adjustment LAB CA3 8.4-10.4 mg/dL Calcium Normal 8.5 LAB ALB3 3.5-5.0 g/dL Low Albumin, Serum 3.0 LAB TP3 6.3-8.2 g/dL Low Total Protein 5.9 LAB BILT3 0.2-1.3 mg/dL Normal Bilirubin,Total 0.5 LAB ALKP3 38-126 U/L Alkaline Normal Phosphatase 68 LAB ALT3 13-69 U/L ALT (SGPT) Normal 22 LAB AST3 15-46 U/L AST (SGOT) Normal 15 Performed By: #### ICA, HEMDF, MG3, CMP3M #### [facility] [address] [place] [address] GLUCOSE,BEDSIDE Collected: 05/04/2018 Status: F Source: UXCam 9:58 PM SYSTEM REPOSITORY TYPE CODE TESTS RESULT OUT OF RANGE REFERENCE UNITS LAB BGLU 70-100 mg/dL High 122 Glucose,Beds justin Result Comment: Test performed by glucose meter. Results may be 10%-15% lower than serum/plasma values. (CLIA ID [id number]) Performed By: #### BGLU #### [facility] [address] [place] [address]. [place] [address] VANCOMYCIN TROUGH Collected: 05/04/2018 Status: F Source: UXCam 6:56 PM SYSTEM REPOSITORY TYPE CODE TESTS RESULT OUT OF REFERENCE UNITS RANGE LAB VNCT 15.0-20.0 ug/mL Low Vancomycin 10.2 Trough Result Comment: . Performed By: #### VANCT #### [facility] [address] [place] [id number] GLUCOSE,BEDSIDE Collected: 05/04/2018 Status: F Source: UXCam 4:44 PM SYSTEM REPOSITORY TYPE CODE TESTS RESULT OUT OF RANGE REFERENCE UNITS LAB BGLU 70-100 mg/dL High 117 Glucose,Beds justin Result Comment: Test performed by glucose meter. Results may be 10%-15% lower than serum/plasma values. (CLIA ID [id number]) Performed By: #### BGLU #### [facility] [address] [place] [address] [place] [address] GLUCOSE,BEDSIDE Collected: 05/04/2018 Status: F Source: UXCam 12:09 PM SYSTEM REPOSITORY TYPE CODE TESTS RESULT OUT OF RANGE REFERENCE UNITS LAB BGLU 70-100 mg/dL High 203 Glucose,Beds justin Result Comment: Test performed by glucose meter. Results may be 10%-15% lower than serum/plasma values. (CLIA ID [id number]) Performed By: #### BGLU #### [facility] [address] [place] [address] CR CHEST PORTABLE Observed: 05/04/2018 Status: F Source: UXCam 7:21 AM SYSTEM REPOSITORY Patient Name: MELANI WELCH Diagnostic Radiology Exam Date/Time 05/04/2018 05:05:00 EDT Exam CR Chest Portable Ordering Physician FANG COLLINS Accession Number [id number] CPT4 Codes 06110 () Reason For Exam chf Report CHEST (Frontal View) History: Respiratory abnormality, CHF Comparison: 05/03/2018 IMPRESSION: Frontal chest view shows right basilar atelectasis/infiltrate with elevated right diaphragm. There is smaller linear left basilar atelectasis. Both lungs show interstitial prominence that have decreased. There is a mildly congested. The heart is enlarged. There is no mediastinal widening or other significant interval change. Report Dictated on Final Dictating Physician: MD ELENA AHMAD Signed Date and Time: 05/04/2018 7:24 am Signed by: MD ELENA AHMAD Transcribed Date and Time: 05/04/2018 7:26 ECHO COMPLETE W/WO Observed: 05/04/2018 Status: F Source: UXCam CONTRAST 6:40 AM SYSTEM REPOSITORY Patient Name: MELANI WELCH Ultrasound Exam Date/Time 05/04/2018 07:54:27 EDT Exam Echo Complete w/wo Contrast Ordering Physician FANG COLLINS Accession Number [id number] Reason For Exam CHF/ Sepsis Report TRANSTHORACIC ECHOCARDIOGRAM PATIENT: Melani Welch STUDY DATE: 05/04/2018 : 1935 AGE: 82 HT/WT: 182.9 cm (72 134.7 kg in) (296.4 lb) GENDER: M BP: 107 / 85 LOCATION: [facility] PATIENT Inpatient [facility] STATUS: *ORDERING PHYSICIAN: * Fang Collins *READING PHYSICIAN: * Jaz Christianson MD *DERRICK ENGINEER: Giancarlo Vance RDCS, AE --- INDICATIONS: Congestive heart failure. Sepsis. --- HISTORY: PMH: Dm Last Echo 01-27-2017. --- CONCLUSIONS SUMMARY: 1. Left ventricle: There is mild concentric hypertrophy. The estimated ejection fraction is 65%. 2. Right ventricle: The cavity size is mildly dilated. --- STUDY DATA: Complete transthoracic echocardiogram. Procedure: Image quality was fair. M-mode, complete 2D, complete spectral Doppler, and color flow Doppler images were acquired and archived for permanent storage and are available for subsequent review. Study status: Routine. Patient status: Inpatient. --- FINDINGS LEFT VENTRICLE: The cavity size is normal. Wall thickness is mildly increased. There is mild concentric hypertrophy. The estimated ejection fraction is 65%. There are no regional wall motion abnormalities. Left ventricular diastolic function parameters are normal. RIGHT VENTRICLE: The cavity size is mildly dilated. Systolic function is normal. Right ventricular systolic pressure is within the normal range. VENTRICULAR SEPTUM: There is no evidence of a ventricular septal defect. LEFT ATRIUM: The atrium is normal in size. RIGHT ATRIUM: The atrium is normal in size. ATRIAL SEPTUM: Color Doppler shows no evidence of shunt. MITRAL VALVE: Normal-sized, mildly calcified annulus. Doppler: There is trivial, less than 1+ regurgitation. Peak gradient (D): 2 mm Hg. AORTIC VALVE: Structurally normal valve. Trileaflet. Doppler: There is no regurgitation. TRICUSPID VALVE: Normal-sized annulus. Doppler: There is trivial, less than 1+ regurgitation. PULMONIC VALVE: Normal-sized annulus. Doppler: There is trivial, less than 1+ regurgitation. AORTA: The aorta is normal. PULMONARY ARTERY: Main pulmonary artery: Normal. PERICARDIUM: There is no pericardial effusion. SYSTEMIC VEINS: Inferior vena cava: The vessel is normal. The IVC collapses by greater than 50% with inspiration. --- Measurements Left ventricle Value 01/27/2017 Reference Longitudinal strain, 2D 22.69 % --------- LV ID, ED 4.3 cm 4.5 4.2 - 5.9 LV ID, ES 3.5 cm 3.3 --------- LV PW thickness, ED (H) 1.3 cm 1.3 0.6 - 1.0 LV end-systolic volume 41 ml 35 22 - 58 LV end-systolic volume/bsa 15 ml/m2 14 12 - 30 LV end-diastolic volume, 1-p A4C 117 ml 67 - 155 LV end-systolic volume, 1-p A4C 33 ml 58 LV end-diastolic volume, 2-p 85 ml - 155 LV end-systolic volume, 2-p 33 ml 58 LV ejection fraction, 2-p 65 % >=55 LV E/e', lateral 7.1 6.7 --------- LV E/e', medial 10.6 6.9 --------- LV E/e', average 8.5 6.8 --------- Ventricular septum Value 01/27/2017 Reference IVS thickness, ED (H) 1.3 cm 1.7 0.6 - 1.0 LVOT Value 01/27/2017 Reference LVOT ID, A-P 2.0 cm 2.0 --------- Aorta Value 01/27/2017 Reference Aortic root ID, ED (sinus) 3.8 cm 3.4 <4.6 Left atrium Value 01/27/2017 Reference LA volume/bsa, ES, 2-p 14 ml/m2 22 --------- Mitral valve Value 01/27/2017 Reference Mitral E-wave peak velocity 0.8 m/sec 0.4 --------- Mitral A-wave peak velocity 1.2 m/sec 0.7 --------- Mitral deceleration time 107 ms 77 --------- Mitral peak gradient, D 2 mm Hg --------- Mitral E/A ratio, peak 0.7 0.5 --------- Mitral regurg vena contracta 0.45 cm 0.4 --------- Right atrium Value 01/27/2017 Reference RA area, ES, A4C 10 cm2 17 10 - 18 Right ventricle Value 01/27/2017 Reference TAPSE 2.7 cm 1.9 --------- RV s', lateral, S 0.22 m/sec 0.21 --------- Pulmonic valve Value 01/27/2017 Reference Pulmonic regurg gradient, ED 17 mm Hg --------- Legend: (L) and (H) jarett values outside specified reference range. Electronically signed by Jaz Christianson MD 05/04/2018 09:37 Final Dictated: 05/04/2018 9:37 am Dictating Physician: JAZ CHRISTIANSON Signed Date and Time: 05/04/2018 9:37 am Signed by: JAZ CHRISTIANSON HEMOGRAM W/ AUTODIFF Collected: 05/04/2018 Status: F Source: UXCam 4:33 AM SYSTEM REPOSITORY TYPE CODE TESTS RESULT OUT OF REFERENCE UNITS RANGE LAB IWBC 3.6-10.7 10*3/uL WBC Normal 9.7 LAB RBC 4.40-5.90 10*6/uL Low RBC 3.81 LAB HGB 13.0-18.0 g/dL Low Hemoglobin 11.8 LAB HCT 40.0-52.0 % Low Hematocrit 34.6 LAB MCV 80.0-98.0 fL MCV Normal 90.6 LAB MCH 26.0-34.0 pg MCH Normal 31.0 LAB MCHC 32.0-36.0 % MCHC Normal 34.2 LAB RDW 11.5-14.5 % RDW Normal 14.1 LAB PLT 140-440 10*3/uL Platelet Normal 288 LAB MPV 7.4-10.4 fL MPV Normal 7.4 LAB GRAN% 40.0-80.0 % Granulocytes Normal 72.0 LAB LYMP% 20.0-40.0 % Low Lymphocytes 15.3 LAB MONO% 2.0-10.0 % Monocytes Normal 8.4 LAB EOS% 1.0-6.0 % Eosinophils Normal 3.6 LAB BAS% 0.0-2.0 % Basophils Normal 0.7 LAB ANC 1.8-7.0 10*3/uL Abs Normal Neutrophile Cnt 7.0 LAB ALC 1.0-4.3 10*3/uL Abs Lymph Cnt Normal 1.5 LAB AMC 0.0-0.8 10*3/uL Abs Monocyte Normal Cnt 0.8 LAB AEC 0.0-0.5 10*3/uL Abs Eosin Cnt Normal 0.3 LAB ABC 0.0-0.2 10*3/uL Abs Baso Cnt Normal 0.1 Performed By: #### ICA, HEMDF, CMP3M, MG3, PHOS3, PT #### [facility] [address] [place] [address] CALCIUM,IONIZED Collected: 05/04/2018 Status: F Source: UXCam 4:32 AM SYSTEM REPOSITORY TYPE CODE TESTS RESULT OUT OF RANGE REFERENCE UNITS LAB ICAL 4.30-5.20 mg/dL Low Ionized 4.20 Ca,Measured LAB PHICA 7.31-7.46 NA Normal pH, Ionized 7.36 Calcium Performed By: #### ICA, HEMDF, CMP3M, MG3, PHOS3, PT #### [facility] [address] [place] [address] COMP PANEL WITH MG Collected: 05/04/2018 Status: F Source: UXCam REFLEX 4:32 AM SYSTEM REPOSITORY TYPE CODE TESTS RESULT OUT OF RANGE REFERENCE UNITS LAB NA3 137-145 mmol/L Low Sodium 135 LAB K3 3.5-5.1 mmol/L Normal Potassium 4.3 LAB CL3 98-107 mmol/L Chloride Normal 103 LAB CO23 22-30 mmol/L Carbon Normal Dioxide 25 LAB ANIN3 NA Anion Gap 8 LAB GLUC3 70-100 mg/dL High Glucose 118 LAB BUN3 7-20 mg/dL High Urea Nitrogen 48 LAB CRET3 0.52-1.25 mg/dL High Creatinine 3.90 LAB GF3BR >60 mL/min eGFR 18.0 LAB GF3WR >60 mL/min eGFR OTHER 14.9 Result Comment: Source- MDRD equation with creatinine calibration to IDMS(NKDEP) eGFR not recommended for drug dose adjustment LAB CA3 8.4-10.4 mg/dL Low Calcium 8.3 LAB ALB3 3.5-5.0 g/dL Low Albumin, Serum 3.2 LAB TP3 6.3-8.2 g/dL Low Total Protein 5.9 LAB BILT3 0.2-1.3 mg/dL Normal Bilirubin,Total 0.9 LAB ALKP3 38-126 U/L Alkaline Normal Phosphatase 71 LAB ALT3 13-69 U/L ALT (SGPT) Normal 18 LAB AST3 15-46 U/L AST (SGOT) Normal 16 Performed By: #### ICA, HEMDF, CMP3M, MG3, PHOS3, PT #### [facility] [address] [place] [address] MAGNESIUM Collected: 05/04/2018 Status: F Source: UXCam 4:32 AM SYSTEM REPOSITORY TYPE CODE TESTS RESULT OUT OF REFERENCE UNITS RANGE LAB MG3 1.6-2.3 mg/dL Low Magnesium 1.5 Performed By: #### ICA, HEMDF, CMP3M, MG3, PHOS3, PT #### [facility] [address] [place] [address] PHOSPHORUS Collected: 05/04/2018 Status: F Source: UXCam 4:32 AM SYSTEM REPOSITORY TYPE CODE TESTS RESULT OUT OF REFERENCE UNITS RANGE LAB PHOS3 2.5-4.5 mg/dL High Phosphorus 4.8 Performed By: #### ICA, HEMDF, CMP3M, MG3, PHOS3, PT #### [facility] [address] [place] [address] PROTHROMBIN TIME Collected: 05/04/2018 Status: F Source: UXCam 4:32 AM SYSTEM REPOSITORY TYPE CODE TESTS RESULT OUT OF REFERENCE UNITS RANGE LAB PROTM 9.0-12.0 s Prothrombin Normal Time 10.0 Result Comment: . LAB INR 0.9-1.1 NA Low INR 0.8 Result Comment: Recommended Anticoagulant Therapy: SEE BELOW ----- INR of 2.0 - 3.0 : - Prophylaxis of Venous Thrombosis (high-risk surgery) - Treatment of Venous Thrombosis - Treatment of Pulmonary Embolism (Includes tissue heart valves, Acute Myocardial Infarction to prevent systemic embolism, Valvular Heart Disease, and Atrial Fibrillation) ----- INR of 2.5 - 3.5 : - Mechanical Prosthetic Valves (high risk) - If oral anticoagulant therapy is used to prevent Myocardial Infarction Performed By: #### ICA, HEMDF, CMP3M, MG3, PHOS3, PT #### [facility] [address] [place] [address] LACTIC ACID Collected: 05/03/2018 Status: F Source: UXCam 9:00 PM SYSTEM REPOSITORY TYPE CODE TESTS RESULT OUT OF RANGE REFERENCE UNITS LAB LACT3 0.7-2.0 mmol/L Normal Lactic Acid 0.9 Performed By: #### LACT3 #### [facility] [address] [place] [address] GLUCOSE,BEDSIDE Collected: 05/03/2018 Status: F Source: UXCam 8:01 PM SYSTEM REPOSITORY TYPE CODE TESTS RESULT OUT OF RANGE REFERENCE UNITS LAB BGLU 70-100 mg/dL High 116 Glucose,Beds justin Result Comment: Test performed by glucose meter. Results may be 10%-15% lower than serum/plasma values. (CLIA ID [id number]) Performed By: #### BGLU #### [facility] [address] [place] [address] US RETROPERITONEAL LIMITED Observed: 05/03/2018 Status: F Source: UXCam 7:38 PM SYSTEM REPOSITORY Patient Name: MELANI WELCH Ultrasound Exam Date/Time 05/03/2018 18:15:00 EDT Exam US Retroperitoneal Limited Ordering Physician FANG COLLINS Accession Number [id number] CPT4 Codes 71313 () Reason For Exam RENAL FAILURE, ACUTE (KIDNEY INJURY) Report HISTORY: Renal failure, acute kidney injury. Sepsis. Sonographic images of the bilateral kidneys and bladder were obtained. Comparisons available: Limited comparison with a study dated 08/16/2007. FINDINGS: The right kidney measures 12.3 x 6.3 x 8.6. Parenchymal echotexture is normal. No focal lesions are seen. There is no evidence of hydronephrosis or renal calculus. The left kidney measures 12.1 x 6.3 x 7.0. Parenchymal echotexture is normal. No focal lesions are seen. There is no evidence of hydronephrosis or renal calculus. No mass or fluid collection is seen adjacent to the kidneys. Urinary bladder cannot be evaluated as decompressed by a Freeman catheter. IMPRESSION: No acute sonographic abnormality of either kidney. Report Dictated on Final Dictating Physician: MD GUALLPA TOM A Signed Date and Time: 05/03/2018 7:41 pm Signed by: MD GUALLPA TOM A Transcribed Date and Time: 05/03/2018 7:42 LACTIC ACID Collected: 05/03/2018 Status: F Source: UXCam 6:41 PM SYSTEM REPOSITORY TYPE CODE TESTS RESULT OUT OF RANGE REFERENCE UNITS LAB LACT3 0.7-2.0 mmol/L Normal Lactic Acid 1.0 Performed By: #### LACT3, CMP3M, HA1C2 #### [facility] [address] [place] [address] #### PCAL #### [facility] [address] [place] [address] GLUCOSE,BEDSIDE Collected: 05/03/2018 Status: F Source: [facility] 6:37 PM SYSTEM REPOSITORY TYPE CODE TESTS RESULT OUT OF RANGE REFERENCE UNITS LAB BGLU 70-100 mg/dL High 130 Glucose,Beds justin Result Comment: Test performed by glucose meter. Results may be 10%-15% lower than serum/plasma values. (CLIA ID [id number]) Performed By: #### BGLU #### [facility] [address] [place] [address] COMP PANEL WITH MG Collected: 05/03/2018 Status: F Source: UXCam REFLEX 6:37 PM SYSTEM REPOSITORY TYPE CODE TESTS RESULT OUT OF RANGE REFERENCE UNITS LAB NA3 137-145 mmol/L Low Sodium 136 LAB K3 3.5-5.1 mmol/L Normal Potassium 4.1 LAB CL3 98-107 mmol/L Chloride Normal 100 LAB CO23 22-30 mmol/L Carbon Normal Dioxide 25 LAB ANIN3 NA Anion Gap 11 LAB GLUC3 70-100 mg/dL High Glucose 133 LAB BUN3 7-20 mg/dL High Urea Nitrogen 48 LAB CRET3 0.52-1.25 mg/dL High Creatinine 3.88 LAB GF3BR >60 mL/min eGFR 18.1 LAB GF3WR >60 mL/min eGFR OTHER 15.0 Result Comment: Source- MDRD equation with creatinine calibration to IDMS(NKDEP) eGFR not recommended for drug dose adjustment LAB CA3 8.4-10.4 mg/dL Low Calcium 8.2 LAB ALB3 3.5-5.0 g/dL Low Albumin, Serum 3.4 LAB TP3 6.3-8.2 g/dL Total Protein Normal 6.3 LAB BILT3 0.2-1.3 mg/dL Normal Bilirubin,Total 0.8 LAB ALKP3 38-126 U/L Alkaline Normal Phosphatase 76 LAB ALT3 13-69 U/L ALT (SGPT) Normal 24 LAB AST3 15-46 U/L Low AST (SGOT) 13 Performed By: #### LACT3, CMP3M, HA1C2 #### [facility] [address] [place] [address] #### PCAL #### [facility] [address] [place] [address] HEMOGLOBIN A1C Collected: 05/03/2018 Status: F Source: UXCam 6:37 PM SYSTEM REPOSITORY TYPE CODE TESTS RESULT OUT OF REFERENCE UNITS RANGE LAB A1C2 4.0-5.7 % High Hemoglobin A1C 7.4 Result Comment: --HgbA1C levels may not be accurate in patients who have renal disease, received recent blood transfusions, are anemic, or who have dyshemoglobinemia. LAB EAG2 mg/dL Estimated Avg Glucose 166 Performed By: #### LACT3, CMP3M, HA1C2 #### [facility] [address] [place] [address] #### PCAL #### [facility] [address] [place] [address] PROCALCITONIN Collected: 05/03/2018 Status: F Source: UXCam 6:37 PM SYSTEM REPOSITORY TYPE CODE TESTS RESULT OUT OF RANGE REFERENCE UNITS LAB PRO <0.10 ng/mL Procalcitonin Abnormal 0.11 LAB INT3 NA Interpretation See Below Result Comment: PCT <0.50 = Low risk of severe sepsis and/or septic shock. PCT >2.00 = High risk of severe sepsis and/or septic shock. Performed By: #### LACT3, CMP3M, HA1C2 #### [facility] [address] [place] [address] #### PCAL #### [facility] [address] [place] [address] CK Collected: 05/03/2018 Status: F Source: UXCam 6:37 PM SYSTEM REPOSITORY TYPE CODE TESTS RESULT OUT OF RANGE REFERENCE UNITS LAB CK3 30-170 U/L Normal CK 82 Performed By: #### CK3 #### [facility] [address] [place] [address] CR CHEST PORTABLE Observed: 05/03/2018 Status: F Source: UXCam 3:11 PM SYSTEM REPOSITORY Patient Name: MELANI WELCH Diagnostic Radiology Exam Date/Time 05/03/2018 14:51:11 EDT Exam CR Chest Portable Ordering Physician FANG COLLINS Accession Number [id number] CPT4 Codes 55849 () Reason For Exam sepsis Report CHEST: CLINICAL INDICATION: Sepsis TECHNIQUE: AP portable chest COMPARISON: 01/26/2017 FINDINGS: The cardiomediastinal silhouette appears unchanged from the prior exam. There is interstitial prominence. There is subsegmental left basilar atelectasis. There is no sizable pleural effusion. Degenerative change of the thoracic spine is noted. IMPRESSION: There is interstitial prominence, interstitial edema versus atypical infection. There is subsegmental left basilar atelectasis. Report Dictated on Final Dictating Physician: MD CORTES NICHOLAS Signed Date and Time: 05/03/2018 3:12 pm Signed by: MD CORTES NICHOLAS Transcribed Date and Time: 05/03/2018 3:13 URINALYSIS,MACRO Collected: 05/03/2018 Status: F Source: UXCam 2:11 PM SYSTEM REPOSITORY TYPE CODE TESTS RESULT OUT OF REFERENCE UNITS RANGE LAB APPUR Clear NA Appearance CLOUDY LAB COLUR Lt. Yellow NA Color DK YELLOW LAB USG 1.005-1.030 NA Specific Normal [place],Urine 1.019 LAB UPH 5.0-8.0 NA pH,Urine Normal 5.0 LAB ULUK Negative NA Leukocytes TRACE LAB UNIT Negative NA Nitrites NEG LAB UPRO Negative mg/dL Total Protein,Urine NEG LAB UGLU Negative mg/dL Glucose,Urine NEG LAB UKET Negative mg/dL Ketone,Urine TRACE LAB UURO 0-1 mg/dL Urobilinogen 0.2 LAB UBIL Negative NA Bilirubin,Ur POS LAB UBLD Negative {RBC}/uL Occult Blood,Ur NEG Performed By: #### UAMAC, UAMIC #### [facility] [address] [place] [address] URINALYSIS,MICROSCOPIC Collected: Status: F Source: [facility] 05/03/2018 2:11 PM HEALTH SYSTEM REPOSITORY TYPE CODE TESTS RESULT OUT OF REFERENCE UNITS RANGE LAB WBCU 0-5 /[HPF] WBC,Urine 0 - 2 LAB RBCU 0-2 /[HPF] RBC,Urine 0 - 2 LAB EPIU 3-5 /[HPF] Epithelial Cells 0 - 2 LAB TOBIN Negative NA Bacteria Few (1-5) LAB MUC Negative NA Mucous Threads Few LAB HYL 0-1 /[LPF] Cast, Hyaline 0 - 2 LAB CAOX Negative NA Ca Oxylate Crystals Few (1-5) Performed By: #### UAMAC, UAMIC #### [facility] [employer] [facility] [address] [place] [address] HEMOGRAM W/ AUTODIFF Collected: 05/03/2018 Status: F Source: [facility] 12:14 PM SYSTEM REPOSITORY TYPE CODE TESTS RESULT OUT OF REFERENCE UNITS RANGE LAB IWBC 3.6-10.7 10*3/uL WBC High 13.3 LAB RBC 4.40-5.90 10*6/uL Low RBC 4.37 LAB HGB 13.0-18.0 g/dL Hemoglobin Normal 13.4 LAB HCT 40.0-52.0 % Low Hematocrit 39.9 LAB MCV 80.0-98.0 fL MCV Normal 91.4 LAB MCH 26.0-34.0 pg MCH Normal 30.8 LAB MCHC 32.0-36.0 % MCHC Normal 33.7 LAB RDW 11.5-14.5 % RDW Normal 13.8 LAB PLT 140-440 10*3/uL Platelet Normal 351 LAB MPV 7.4-10.4 fL MPV Normal 7.6 LAB GRAN% 40.0-80.0 % Granulocytes Normal 79.3 LAB LYMP% 20.0-40.0 % Low Lymphocytes 10.7 LAB MONO% 2.0-10.0 % Monocytes Normal 8.2 LAB EOS% 1.0-6.0 % Eosinophils Normal 1.1 LAB BAS% 0.0-2.0 % Basophils Normal 0.7 LAB ANC 1.8-7.0 10*3/uL Abs High Neutrophile Cnt 10.6 LAB ALC 1.0-4.3 10*3/uL Abs Lymph Cnt Normal 1.4 LAB AMC 0.0-0.8 10*3/uL Abs Monocyte High Cnt 1.1 LAB AEC 0.0-0.5 10*3/uL Abs Eosin Cnt Normal 0.1 LAB ABC 0.0-0.2 10*3/uL Abs Baso Cnt Normal 0.1 Performed By: #### HEMDF, CMP3, LACT3 #### [facility] [address] [place] [address] COMP METABOLIC PANEL Collected: 05/03/2018 Status: F Source: UXCam 12:14 PM SYSTEM REPOSITORY TYPE CODE TESTS RESULT OUT OF RANGE REFERENCE UNITS LAB NA3 137-145 mmol/L Sodium Normal 137 LAB K3 3.5-5.1 mmol/L Normal Potassium 4.6 LAB CL3 98-107 mmol/L Chloride Normal 99 LAB CO23 22-30 mmol/L Carbon Normal Dioxide 25 LAB ANIN3 NA Anion Gap 14 LAB GLUC3 70-100 mg/dL High Glucose 134 LAB BUN3 7-20 mg/dL High Urea Nitrogen 50 LAB CRET3 0.52-1.25 mg/dL High Creatinine 4.25 LAB GF3BR >60 mL/min eGFR 16.3 LAB GF3WR >60 mL/min eGFR OTHER 13.5 Result Comment: Source- MDRD equation with creatinine calibration to IDMS(NKDEP) eGFR not recommended for drug dose adjustment LAB CA3 8.4-10.4 mg/dL Calcium Normal 9.5 LAB ALB3 3.5-5.0 g/dL Albumin, Serum Normal 4.3 LAB TP3 6.3-8.2 g/dL Total Protein Normal 7.6 LAB BILT3 0.2-1.3 mg/dL Normal Bilirubin,Total 0.7 LAB ALKP3 38-126 U/L Alkaline Normal Phosphatase 95 LAB ALT3 13-69 U/L ALT (SGPT) Normal 25 LAB AST3 15-46 U/L AST (SGOT) Normal 16 Performed By: #### HEMDF, CMP3, LACT3 #### [facility] [address] [place] [address] LACTIC ACID Collected: 05/03/2018 Status: F Source: UXCam 12:14 PM SYSTEM REPOSITORY TYPE CODE TESTS RESULT OUT OF REFERENCE UNITS RANGE LAB LACT3 0.7-2.0 mmol/L High Alert Lactic Acid 2.3 Performed By: #### HEMDF, CMP3, LACT3 #### [facility] [employer] [facility] [address] [place] [address] Observed: 05/03/2018 Status: F Source: UXCam CULTURE BLOOD 12:14 PM SYSTEM REPOSITORY Order Comment: Specimen Source Comment:Blood CULTURE BLOOD --> Status: F Staphylococcus species (probable Coagulase negative Staph) ? DETECTED mecA (methicillin resistance gene) ? NOT DETECTED Presumptive identification performed using BioFire FilmArray PCR methodology; confirmatory identification to follow. The following targets were NOT DETECTED unless otherwise stated above in report: Staphylococcus aureus, Staphylococcus species, Enterococcus species, Streptococcus species, Streptococcus agalactiae (Group B), Streptococcus pneumoniae, Streptococcus pyogenes (Group A), Listeria monocytogenes, Acinetobacter baumannii, Enterobacteriaceae, Enterobacter cloacae complex, E. coli, Klebsiella oxytoca, Klebsiella pneumoniae, Proteus species, Serratia marcescens, Pseudomonas aeruginosa, Haemophilus influenzae, Neisseria meningitidis, Dipti albicans, Dipti glabrata, Dipti krusei, Dipti parapsilosis, Dipti tropicalis. The following antibiotic resistance targets were NOT DETECTED unless otherwise stated above in report: mecA (methicillin resistance gene) and van A/B (vancomycin resistance gene). DETECTED mecA (methicillin resistance gene) ? NOT DETECTED Presumptive identification performed using BioFire FilmArray PCR methodology; confirmatory identification to follow. The following targets were NOT DETECTED unless otherwise stated above in report: Staphylococcus aureus, Staphylococcus species, Enterococcus species, Streptococcus species, Streptococcus agalactiae (Group B), Streptococcus pneumoniae, Streptococcus pyogenes (Group A), Listeria monocytogenes, Acinetobacter baumannii, Enterobacteriaceae, Enterobacter cloacae complex, E. coli, Klebsiella oxytoca, Klebsiella pneumoniae, Proteus species, Serratia marcescens, Pseudomonas aeruginosa, Haemophilus influenzae, Neisseria meningitidis, Dipti albicans, Dipti glabrata, Dipti krusei, Dipti parapsilosis, Dipti tropicalis. The following antibiotic resistance targets were NOT DETECTED unless otherwise stated above in report: mecA (methicillin resistance gene) and van A/B (vancomycin resistance gene). 1 Organism (Coagulase-negative) Staphylococcus capitis Isolated: Contamination likely unless additional blood culture sets are found to be positive with the same organism. Performed By: #### C/BLD #### [facility] [address] [place] [address] Observed: 05/03/2018 Status: F Source: UXCam CULTURE BLOOD (TWO) 12:14 PM SYSTEM REPOSITORY Order Comment: Specimen Source Comment:Blood CULTURE BLOOD (Two) --> Status: F No growth at 5 days. Performed By: #### C/BLT #### [facility] [address] [place] [address] VL VENOUS DUPLEX US Observed: 05/03/2018 Status: F Source: UXCam LOWER EXT RIGHT 12:12 PM SYSTEM REPOSITORY Patient Name: MELANI WELCH Ultrasound Exam Date/Time 05/03/2018 12:39:24 EDT Exam VL Venous Duplex US Lower Ext Right Ordering Physician ANIKA AHMADI PETER J Accession Number [id number] CPT4 Codes 21889 () Reason For Exam blood clot Report [facility] --- Right Lower Extremity Venous Duplex Report Patient Name: Melani Welch : 1935 Study Date: 05/03/2018 Rito (82yrs) Age: 82 Account: [id number] Gender: Rito Loc: 4441 BP: Ordering: Levi Ahmadi Technologist: Ordering Physician: Levi Ahmadi Computer Aided Design Operator: Cassie Batista Interpreting Physician: Anthony Silva MD --- Location: [facility] --- INDICATIONS: Swelling of the right lower leg --- CONCLUSIONS 1. This is a normal study. --- IMPRESSIONS: - This is a normal study. - These findings are negative for deep or superficial vein thrombosis in the right lower extremity. --- HISTORY: Risk factors: Former tobacco use. --- STUDY DATA: Right lower extremity venous duplex evaluation. Birthdate: Patient birthdate: 1935. Age: Patient is 82 yr old. Sex: Gender: male. Ethnicity: Ethnicity: white. Doppler flow study including spectral analysis, color and melgoza scale imaging. Patient status: Emergency department. Procedure: A vascular evaluation was performed. The images were obtained using a [email or web address].[employer] E9 vascular ultrasound machine. The study was technically limited due to body habitus and edema. --- VENOUS FLOW AND IMAGING: + +-------+ --+ !Location !Overall!Flow properties ! + +-------+ --+ !Right common femoral !Patent !Normal phasicity; spontaneous; normal ! ! ! !augmentation; compressible ! + +-------+ --+ !Right saphenofemoral junction!Patent !Compressible ! + +-------+ --+ !Right profunda femoral !Patent !Normal phasicity; spontaneous; normal ! ! ! !augmentation ! + +-------+ --+ !R femoral proximal !Patent !Compressible ! + +-------+ --+ !R femoral mid !Patent !Normal phasicity; spontaneous; normal ! ! ! !augmentation; compressible ! + +-------+ --+ !R femoral distal !Patent !Compressible ! + +-------+ --+ !Right popliteal !Patent !Normal phasicity; spontaneous; normal ! ! ! !augmentation; compressible ! + +-------+ --+ !Right gastrocnemius !Patent !Compressible ! + +-------+ --+ !Right posterior tibial !Patent !Compressible ! + +-------+ --+ !Right peroneal !Patent !Compressible ! + +-------+ --+ !Right soleal !Patent !Compressible ! + +-------+ --+ !Right greater saphenous !Patent !Compressible ! + +-------+ --+ !Right lesser saphenous !Patent !Compressible ! + +-------+ --+ !Left common femoral !Patent !Normal phasicity; spontaneous; normal ! ! ! !augmentation; compressible ! + +-------+ --+ Electronically signed by: Anthony Silva MD [id number] Final Dictated: 05/03/2018 2:43 pm Dictating Physician: ANTHONY SILVA Signed Date and Time: 05/03/2018 2:43 pm Signed by: ANTHONY SILVA ALLERGIES ALLERGIES No Allergies Records FoundENCOUNTERS ENCOUNTERS ADMIT/DISCHARGE ACCOUNT NUMBER ADMITTING ENCOUNTER LOCATION SOURCE CLASS 11/01/2018 [id number] [facility] ding:OLS.ACW Repository 300 07/04/2018 [id number] [facility] ding:OLS.ACW Repository 200 06/29/2018 [id number] [facility] ding:OLS.ACW Repository 200 05/23/2018 [id number] [facility] ding:OLS.ACW Repository 100 05/03/2018 [id number] [facility] [place] [address] Encounter ICURoom: System [id number]: Repository [id number] PAYERS PAYERS ENCOUNTER GUARANTOR PAYER SUBSCRIBER SOURCE 11/01/2018 Primary NOT GIVENUNK [place] Insurance:SELF PAY [facility] Number: Effective Repository Date:2018-11-01 07/04/2018 Primary NOT GIVENUNK Annmarie Insurance:SELF PAY [facility] Number: Effective Repository Date:2018-07-04 06/29/2018 Melani Primary Melani [place] [address] [place] [facility]O MOHINI MEDICAREPolicy [id number] HospitalNISHACOLORAD[facility] SPRINGS Number: Repository , [place] [address]Dbt: [id number] Date:[id number] () [address] [place] [address]HH: 06/29/2018 Secondary NOT GIVENUNK [place] Insurance:SELF [facility]Y [facility]: Effective Repository Date:2018-06-29 05/23/2018 Primary NOT GIVENUNK Annmarie Insurance:SELF PAY [facility] Number: Effective Repository Date:2018-05-23 05/03/2018 Melani Primary [facility] [employer] ThomsonDOB: Insurance:[facility] ThomsonDOB: System [id number] licy Number: [id number] Repository Inga Effective Date: [place], [place] [address]Pxn: () 05/03/2018 Secondary [facility] Insurance:MedicarePol ThomsonDOB: System icy Number: Effective [id number] Repository Date:
== END ==
LOC: OLS.ACW300 05:00
PROVIDERS: Visit Provider Family Medicine
DX: L03.115 Cellulitis of right lower limb (principal); M62.81 Muscle weakness (generalized); I10 Essential (primary) hypertension; J44.9 Chronic obstructive pulmonary disease, unspecified; E11.51 Type 2 diabetes mellitus with diabetic peripheral angiopathy without gangrene
CPT/HCPCS: 36415; 80048; 80061; 80076; 83036

== ENCOUNTER → 2019-05-02 | Outpatient (REF) | payer MEDICARE, MEDICAID, SELFPAY ==
[2019-05-02 09:14] LABS: Vancomycin, Trough Level 14.3 ug/mL (5.0-15.0)
== END | disposition home or self-care (01) ==
LOC: OLS.ACW300 07:30
PROVIDERS: Visit Provider Family Medicine
DX: L03.115 Cellulitis of right lower limb (principal); M62.81 Muscle weakness (generalized); I10 Essential (primary) hypertension; J44.9 Chronic obstructive pulmonary disease, unspecified; E11.51 Type 2 diabetes mellitus with diabetic peripheral angiopathy without gangrene
CPT/HCPCS: 36415; 80202

== ENCOUNTER → 2019-05-03 | Outpatient (REF) | payer MEDICARE, MEDICAID, SELFPAY ==
[2019-05-03 08:52] LABS: Vancomycin, Trough Level 15.1 ug/mL (5.0-15.0)
== END | disposition home or self-care (01) ==
LOC: OLS.ACW300 07:30
PROVIDERS: Visit Provider Family Medicine
DX: L03.115 Cellulitis of right lower limb (principal); M62.81 Muscle weakness (generalized); I10 Essential (primary) hypertension; J44.9 Chronic obstructive pulmonary disease, unspecified; E11.51 Type 2 diabetes mellitus with diabetic peripheral angiopathy without gangrene
CPT/HCPCS: 36415; 80202

== ENCOUNTER → 2019-05-04 | Outpatient (REF) | payer MEDICARE, MEDICAID, SELFPAY ==
[2019-05-04 15:45] LABS: Vancomycin, Trough Level 17.3 ug/mL (5.0-15.0)
== END | disposition home or self-care (01) ==
LOC: OLS.ACW300 13:30
PROVIDERS: Visit Provider Family Medicine
DX: L03.115 Cellulitis of right lower limb (principal); M62.81 Muscle weakness (generalized); I10 Essential (primary) hypertension; J44.9 Chronic obstructive pulmonary disease, unspecified; E11.51 Type 2 diabetes mellitus with diabetic peripheral angiopathy without gangrene
CPT/HCPCS: 36415; 80202

== ENCOUNTER → 2019-05-06 | Outpatient (REF) | payer MEDICARE, MEDICAID, SELFPAY ==
[2019-05-06 23:16] LABS: Vancomycin, Trough Level 17.1 ug/mL (5.0-15.0)
== END | disposition home or self-care (01) ==
LOC: OLS.ACW300 22:30
PROVIDERS: Visit Provider Family Medicine
DX: L03.115 Cellulitis of right lower limb (principal); M62.81 Muscle weakness (generalized); I10 Essential (primary) hypertension; J44.9 Chronic obstructive pulmonary disease, unspecified; E11.51 Type 2 diabetes mellitus with diabetic peripheral angiopathy without gangrene
CPT/HCPCS: 36415; 80202

== ENCOUNTER → 2019-05-08 | Outpatient (REF) | payer MEDICARE, MEDICAID, SELFPAY ==
[2019-05-08 23:39] LABS: Vancomycin, Trough Level 16.4 ug/mL (5.0-15.0)
== END | disposition home or self-care (01) ==
LOC: OLS.ACW300 22:30
PROVIDERS: Visit Provider Family Medicine
DX: L03.115 Cellulitis of right lower limb (principal); M62.81 Muscle weakness (generalized); I10 Essential (primary) hypertension; J44.9 Chronic obstructive pulmonary disease, unspecified; E11.51 Type 2 diabetes mellitus with diabetic peripheral angiopathy without gangrene
CPT/HCPCS: 36415; 80202

== ENCOUNTER → 2019-06-26 05:00 | Outpatient (REF) | payer MEDICARE, MEDICAID, SELFPAY ==
[2019-06-26 08:00] LABS: Hematocrit 33.4 % (40-54); Hemoglobin 10.1 g/dL (13.0-16.5); Mean Corp Hgb Conc 30.2 g/dL (32-36); Mean Corpuscular Hgb 27.4 pg (27.0-32.0); Mean Corpuscular Volume 90.5 fL (80-94); Mean Platelet Vol. 8.5 fl (6.2-12.0); Platelet Count 448 K/mm3 (150-450); RBC Distribution Width CV 14.7 % (11.6-14.6); RBC Distribution Width SD 48.9 fl (35.1-43.9); Red Blood Count 3.69 M/mm3 (4.6-6.2); White Blood Count 10.4 K/mm3 (4.4-11.0)
[2019-06-26 08:28] LABS: AST(SGOT) 12 U/L (15-37); Alanine Aminotransfer ALT/SGPT 17 U/L (16-61); Albumin, Serum 2.7 g/dL (3.2-5.0); Alkaline Phosphatase 103 U/L (45-117); Anion Gap 5 (5-15); BUN 32 mg/dL (7-18); BUN/Creat Ratio 27.6 RATIO (10-20); Bilirubin, Direct < 0.05 mg/dL (0.00-0.30); Calcium,Total 8.3 mg/dL (8.5-10.1); Chloride 106 mmol/L (98-107); Cholesterol 83 mg/dL (200); Creatinine, Serum 1.16 mg/dL (0.70-1.30); EST Glomerular Filtration Rate 64 mL/min (>60); Est Glom Filt Rate - Afr Amer 77 mL/min (>60); Glucose 98 mg/dL (74-106); High Density Lipoprotein 33 mg/dL; Magnesium 2.5 mg/dL (1.6-2.6); Potassium 4.2 mmol/L (3.5-5.1); Protein, Total 6.7 g/dL (6.4-8.2); Sodium Level 138 mmol/L (136-145); Triglycerides 92 mg/dL; Very Low Density Lipoprotein 18 mg/dL (5-40)
[2019-06-26 08:53] LABS: Hemoglobin A1c 5.5 % (4.2-6.3)
== END ==
LOC: OLS.ACW300 05:00
PROVIDERS: Visit Provider Family Medicine
DX: L03.115 Cellulitis of right lower limb (principal); M62.81 Muscle weakness (generalized); I10 Essential (primary) hypertension; J44.9 Chronic obstructive pulmonary disease, unspecified; E11.51 Type 2 diabetes mellitus with diabetic peripheral angiopathy without gangrene
CPT/HCPCS: 36415; 80048; 80061; 80076; 83036; 83735; 85027

== ENCOUNTER → 2019-08-29 05:00 | Outpatient (REF) | payer MEDICARE, MEDICAID, SELFPAY ==
[2019-08-29 07:46] LABS: Hematocrit 32.5 % (40-54); Hemoglobin 9.7 g/dL (13.0-16.5); Mean Corp Hgb Conc 29.8 g/dL (32-36); Mean Corpuscular Volume 87.1 fL (80-94); Mean Platelet Vol. 8.7 fl (6.2-12.0); Platelet Count 411 K/mm3 (150-450); Red Blood Count 3.73 M/mm3 (4.6-6.2); White Blood Count 9.3 K/mm3 (4.4-11.0)
[2019-08-29 08:08] LABS: Hemoglobin A1c 5.9 % (4.2-6.3)
[2019-08-29 08:15] LABS: ALB/GLOB Ratio 0.7 RATIO (0.9-2.4); AST(SGOT) 11 U/L (15-37); Alanine Aminotransfer ALT/SGPT 13 U/L (16-61); Albumin, Serum 2.8 g/dL (3.2-5.0); Alkaline Phosphatase 94 U/L (45-117); Anion Gap 7 (5-15); BUN 34 mg/dL (7-18); BUN/Creat Ratio 31.5 RATIO (10-20); Calcium,Total 8.4 mg/dL (8.5-10.1); Chloride 106 mmol/L (98-107); Cholesterol 92 mg/dL (200); Creatinine, Serum 1.08 mg/dL (0.70-1.30); EST Glomerular Filtration Rate 69 mL/min (>60); Est Glom Filt Rate - Afr Amer 84 mL/min (>60); Globulin 3.9 g/dL (2.2-4.2); Glucose 94 mg/dL (74-106); High Density Lipoprotein 33 mg/dL; Protein, Total 6.7 g/dL (6.4-8.2); Sodium Level 139 mmol/L (136-145); Thyroid Stim Hormone (TSH) 1.29 uIU/mL (0.358-3.74); Triglycerides 67 mg/dL; Very Low Density Lipoprotein 13 mg/dL (5-40)
[2019-08-29 08:48] LABS: Vitamin D,25 Hydroxy 30.4 ng/mL (29.95-100.01)
== END ==
LOC: OLS.ACW300 05:00
PROVIDERS: Visit Provider Family Medicine
DX: L03.115 Cellulitis of right lower limb (principal); M62.81 Muscle weakness (generalized); I10 Essential (primary) hypertension; J44.9 Chronic obstructive pulmonary disease, unspecified; E11.51 Type 2 diabetes mellitus with diabetic peripheral angiopathy without gangrene; E55.9 Vitamin D deficiency, unspecified
CPT/HCPCS: 36415; 80053; 80061; 82306; 83036; 83735; 84443; 85027

== ENCOUNTER → 2020-02-26 05:00 | Outpatient (REF) | payer MEDICARE, MEDICAID, SELFPAY ==
[2020-02-26 09:49] LABS: Vitamin D,25 Hydroxy 31.2 ng/mL
[2020-02-26 10:13] LABS: Hematocrit 31.9 % (40-54); Hemoglobin 9.2 g/dL (13.0-16.5); Mean Corp Hgb Conc 28.8 g/dL (32-36); Mean Corpuscular Hgb 23.2 pg (27.0-32.0); Mean Corpuscular Volume 80.6 fL (80-94); Mean Platelet Vol. 9.2 fl (6.2-12.0); Platelet Count 485 K/mm3 (150-450); Red Blood Count 3.96 M/mm3 (4.6-6.2); White Blood Count 10.8 K/mm3 (4.4-11.0)
[2020-02-26 10:15] LABS: AST(SGOT) 8 U/L (15-37); Alanine Aminotransfer ALT/SGPT 14 U/L (16-61); Albumin, Serum 2.9 g/dL (3.2-5.0); Alkaline Phosphatase 97 U/L (45-117); Anion Gap 6 (5-15); BUN 33 mg/dL (7-18); BUN/Creat Ratio 32.4 RATIO (10-20); Bilirubin, Direct 0.09 mg/dL (0.00-0.30); Calcium,Total 8.8 mg/dL (8.5-10.1); Chloride 105 mmol/L (98-107); Cholesterol 82 mg/dL (200); Creatinine, Serum 1.02 mg/dL (0.70-1.30); EST Glomerular Filtration Rate 74 mL/min (>60); Est Glom Filt Rate - Afr Amer 90 mL/min (>60); Globulin 3.7 g/dL (2.2-4.2); Glucose 95 mg/dL (74-106); High Density Lipoprotein 36 mg/dL; Magnesium 1.8 mg/dL (1.6-2.6); Potassium 3.4 mmol/L (3.5-5.1); Protein, Total 6.6 g/dL (6.4-8.2); Sodium Level 139 mmol/L (136-145); Thyroid Stim Hormone (TSH) 0.98 uIU/mL (0.358-3.74); Triglycerides 91 mg/dL; Very Low Density Lipoprotein 18 mg/dL (5-40)
[2020-02-26 10:41] LABS: Hemoglobin A1c 5.3 % (4.2-6.3)
== END ==
LOC: OLS.ACW300 05:00
PROVIDERS: Visit Provider Family Medicine
DX: L03.115 Cellulitis of right lower limb (principal); M62.81 Muscle weakness (generalized); I10 Essential (primary) hypertension; J44.9 Chronic obstructive pulmonary disease, unspecified; E11.51 Type 2 diabetes mellitus with diabetic peripheral angiopathy without gangrene
CPT/HCPCS: 36415; 80048; 80061; 80076; 82306; 83036; 83735; 84443; 85027

== ENCOUNTER → 2020-06-11 04:00 | Outpatient (REF) | payer MEDICARE, MEDICAID, SELFPAY | LOC: OLS.ACW300 04:00 | PROVIDERS: Visit Provider Family Medicine | DX: L03.115 Cellulitis of right lower limb (principal); M62.81 Muscle weakness (generalized); I10 Essential (primary) hypertension; J44.9 Chronic obstructive pulmonary disease, unspecified; E11.51 Type 2 diabetes mellitus with diabetic peripheral angiopathy without gangrene | CPT/HCPCS: 87070; 87077; 87186; 87205 ==

== ENCOUNTER → 2020-07-26 10:31 | Outpatient (REF) | payer MEDICARE, MEDICAID, SELFPAY | LOC: OLS.ACW300 10:31 | PROVIDERS: Visit Provider Family Medicine | DX: Z03.818 Encounter for observation for suspected exposure to other biological agents ruled out (principal) | CPT/HCPCS: 87635; U0003 ==

== ENCOUNTER → 2020-08-01 13:27 | Outpatient (REF) | payer MEDICARE, MEDICAID, SELFPAY | LOC: OLS.ACW300 13:27 | PROVIDERS: Internal Medicine; Referring Provider Family Medicine; Visit Provider Family Medicine | DX: Z03.818 Encounter for observation for suspected exposure to other biological agents ruled out (principal) | CPT/HCPCS: 87635; U0003 ==

== ENCOUNTER → 2020-08-19 11:00 | Outpatient (REF) | payer MEDICARE, MEDICAID, SELFPAY | LOC: OLS.ACW300 11:00 | PROVIDERS: Referring Provider Family Medicine; Visit Provider Family Medicine | DX: L03.115 Cellulitis of right lower limb (principal); M62.81 Muscle weakness (generalized); I10 Essential (primary) hypertension; J44.9 Chronic obstructive pulmonary disease, unspecified; E11.51 Type 2 diabetes mellitus with diabetic peripheral angiopathy without gangrene | CPT/HCPCS: 87070; 87077; 87186; 87205 ==

== ENCOUNTER → 2020-09-18 14:22 | Outpatient (REF) | payer MEDICARE, MEDICAID, SELFPAY | LOC: OLS.ACW300 14:22 | PROVIDERS: Referring Provider Family Medicine; Visit Provider Family Medicine | DX: Z03.818 Encounter for observation for suspected exposure to other biological agents ruled out (principal) | CPT/HCPCS: 87635; U0003 ==